=== PATIENT | male | born 1950 | race Caucasian/White ===

== ENCOUNTER 2017-09-29 08:46 | Emergency (ER) | payer MEDICARE, OTHER ==
--- NOTE | 2017-09-29 09:01 | ER Document Report ---
ED Respiratory Problem - General Chief Complaint: Breathing Difficulty Stated Complaint: SOB Time Seen by Provider: 09/29/17 08:58 Notes: The patient is a 67-year-old male, past medical history CAD (w/ stents), hypothyroidism, GERD, presents with increasing shortness of breath that is worse when he lays flat over the past few hours. 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 Patient is visiting his son and he is from [facility]. Patient said he had a heart attack last week and a stent placed, but there is difficulty placing other stents. Pt felt a mild pressure this morning and rattling in his chest. Patient denies current chest pain, cough, fevers, nausea , vomiting, rash, calf pain, hemoptysis or back pain. TRAVEL OUTSIDE OF THE [place] IN LAST 30 DAYS: No - Related Data Allergies/Adverse Reactions: Iodinated Contrast- Oral and IV Dye Allergy (Severe, Verified 09/29/17 10:14) amoxicillin Allergy (Verified 09/29/17 08:49) hydrocodone Allergy (Verified 09/29/17 08:49) perflutren [From DefinPegg'd] Allergy (Verified 09/29/17 08:49) Past Medical History - General Information source: Patient - Social History Smoking Status: Unknown if Ever Smoked Family History: Reviewed & Not Pertinent Review of Systems - Review of Systems Notes: REVIEW OF SYSTEMS: CONSTITUTIONAL: -fevers, -chills EENT: -eye pain, -difficulty swallowing, -nasal congestion CARDIOVASCULAR: +chest pain, -syncope. RESPIRATORY: -cough, +SOB GASTROINTESTINAL: -abdominal pain, -nausea, -vomiting, -diarrhea GENITOURINARY: -dysuria, -hematuria MUSCULOSKELETAL: -back pain, -neck pain SKIN: -rash or skin lesions. HEMATOLOGIC: -easy bruising or bleeding. LYMPHATIC: -swollen, enlarged glands. NEUROLOGICAL: -altered mental status or loss of consciousness, -headache, - neurologic symptoms PSYCHIATRIC: -anxiety, -depression. ALL OTHER SYSTEMS REVIEWED AND NEGATIVE. Physical Exam - Vital signs Vitals: Temp Pulse Resp BP Pulse Ox 97.6 F 59 L 20 150/85 H 92 09/29/17 08:54 09/29/17 08:54 09/29/17 08:54 09/29/17 08:54 09/29/17 08:54 - Notes Notes: PHYSICAL EXAMINATION: GENERAL: Well-appearing, well-nourished and in no acute distress. HEAD: Atraumatic, normocephalic. EYES: Pupils equal round and reactive to light, extraocular movements intact, sclera anicteric, conjunctiva are normal. ENT: nares patent, oropharynx clear without exudates. Moist mucous membranes. NECK: Normal range of motion, supple without lymphadenopathy LUNGS: No respiratory distress. Rales in B/L lower lung seth. HEART: Regular rhythm, tachycardia. ABDOMEN: Soft, nontender, normoactive bowel sounds. No guarding, no rebound. No masses appreciated. EXTREMITIES: Normal range of motion, 1+ pitting edema up to knees. No cyanosis. NEUROLOGICAL: Cranial nerves grossly intact. Normal speech, normal gait. Normal sensory and motor exams. PSYCH: Normal mood, normal affect. SKIN: Warm, Dry, normal turgor, no rashes or lesions noted. Course - Re-evaluation Re-evalutation: Patient no respiratory distress and has not had any chest pain. EKG shows [address] elevation in V2 without any reciprocal changes or any other ST elevations. First troponin is 0.159, second troponin is 0.162 and repeat EKG does not show any dynamic changes. Patient has never been to this hospital and no old values. Patient is having sinus tachycardia, shortness of breath and elevated d -dimer. He has anaphylaxis to IV dye, so VQ scan ordered. VQ scan does not show any evidence of a PE. Pt with possible new onset CHF with elevated troponin. Patient with known stenosis of his coronary artery that were difficult to stent last week of he is visiting his son in [place]. No overlay operator at [facility] and patient is requesting transfer to his home hospital at [facility]. 09/29/17 13:[address] Kincaid at [facility] and he has accepted the patient. Patient remains chest pain-free and is not having any shortness of breath unless he exerts himself. He remains mildly tachycardic, but otherwise normal blood pressure and oxygenation. Awaiting bed assignment. 09/29/17 15:31 Difficulty obtaining transportation to hospital 6 hours away. Pt requesting transfer to [facility]. Placed call to transfer center and awaiting callback. 09/29/17 15:[address] Derrick Martinez ([facility]) and he has accepted the patient. Spoke to patient and son and they still wish to go to his home hospital at [facility]. Since unable to obtain [facility] transportation due to insurance reasons, patient would like to leave AMA and go to [facility]. He has capacity and understands the risks of transporting himself to the ER, including worsening heart attack, and disability. Provided him with a copy of his blood work, note and copy of his scans. Spoke to the ER attending at [facility] and made aware of patient. - Vital Signs Vital signs: Temp Pulse Resp BP Pulse Ox 97.6 F 59 L 27 H 149/89 H 95 09/29/17 08:54 09/29/17 08:54 09/29/17 14:52 09/29/17 14:52 09/29/17 14:52 - Laboratory Result Diagrams: 09/29/17 09:20 09/29/17 09:20 Laboratory results interpreted by me: 09/29/17 09/29/17 09/29/17 09:20 09:20 09:20 RDW 14.8 H D-Dimer Glucose 184 H Creatine Kinase 32 L NT-Pro-B Natriuret Pep 1730 H 09/29/17 09:20 RDW D-Dimer 1.30 H Glucose Creatine Kinase NT-Pro-B Natriuret Pep - Diagnostic Test Radiology reviewed: Image reviewed, Reports reviewed Radiology results interpreted by me: CXR: 1 Mild prominence of the interstitial markings may be on a chronic basis. No acute pulmonary consolidation. 2 Slight blunting of the costophrenic angles, suggesting very small pleural effusions. - EKG Interpretation by Me EKG shows normal: Sinus rhythm Rate: Tachycardia Vado/QRS: LAHB/LAFB When compared to previous EKG there are: Previous EKG unavailable Additional EKG results interpreted by me: EKG #1: Sinus tachycardia. 1mm ST elevation in V2 without reciprocal changes. EKG #2: Unchanged. Critical Care Note - Critical Care Note Total time excluding time spent on procedures (mins): 45 Discharge - Discharge Clinical Impression: Shortness of breath, Possible new onset CHF, Elevated troponin Condition: Stable Disposition: AGAINST MEDICAL ADVICE Additional Instructions: Go immediately to [facility] Emergency Room and bring your records. If you have worsening shortness of breath, chest pain or any other concerns, immediately call 911.
[2017-09-29 09:41] LABS: ABSOLUTE BASOPHILS # (AUTO) 0.1 10^3/uL (0.0-0.2); ABSOLUTE EOSINOPHILS # (AUTO) 0.3 10^3/uL (0.0-0.6); ABSOLUTE LYMPHOCYTES (AUTO) 1.8 10^3/uL (0.5-4.7); ABSOLUTE MONOCYTES (AUTO) 0.5 10^3/uL (0.1-1.4); ABSOLUTE NEUT (AUTO) 4.2 10^3/uL (1.7-8.2); BASOPHILS % (AUTO) 1.3 % (0-2); EOSINOPHILS % (AUTO) 4.2 % (0-6); HEMATOCRIT 44.5 % (37.9-51.0); HEMOGLOBIN 15.4 g/dL (13.5-17.0); LYMPHOCYTES % (AUTO) 26.7 % (13-45); MEAN CORPUSCULAR HEMOGLOBIN 29.4 pg (27.0-33.4); MEAN CORPUSCULAR HGB CONC 34.6 g/dL (32.0-36.0); MEAN CORPUSCULAR VOLUME 85 fl (80-97); MONOCYTES % (AUTO) 7.5 % (3-13); PLATELET COUNT 178 10^3/uL (150-450); RED BLOOD COUNT 5.25 10^6/uL (4.35-5.55); RED CELL DISTRIBUTION WIDTH 14.8 % (11.5-14.0); SEGMENTED NEUTROPHILS % (AUTO) 60.3 % (42-78); TOTAL CELLS COUNTED % (AUTO) 100 %; WHITE BLOOD COUNT 6.9 10^3/uL (4.0-10.5)
[2017-09-29 09:49] LABS: VENOUS BLOOD BASE EXCESS -0.9 mmol/L; VENOUS BLOOD HCO3 23.4 mmol/L (20-32); VENOUS BLOOD PCO2 37.9 mmHg (35-63); VENOUS BLOOD PH 7.41 (7.30-7.42)
--- NOTE | 2017-09-29 09:55 | RADIOLOGY REPORT (SQ) ---
EXAM DESCRIPTION: CHEST SINGLE VIEW COMPLETED DATE/TIME: 09/29/2017 9:21 am REASON FOR STUDY: SOB COMPARISON: None. EXAM PARAMETERS: NUMBER OF VIEWS: One view. TECHNIQUE: Single frontal radiographic view of the chest acquired. RADIATION DOSE: NA LIMITATIONS: None. FINDINGS: LUNGS AND PLEURA: Mild prominence of the interstitial markings likely on a chronic basis. No acute pulmonary consolidation. Slight blunting of the costophrenic angle suggests very small pl eural effusions. No pneumothorax. MEDIASTINUM AND HILAR STRUCTURES: No masses. Contour normal. HEART AND VASCULAR STRUCTURES: Borderline cardiomegaly suggested. Normal vasculature. BONES: No acute findings. HARDWARE: Prior anterior median sternotomy and EKG wires. OTHER: No other significant finding. IMPRESSION: 1 Mild prominence of the interstitial markings may be on a chronic basis. No acute pulm onary consolidation. 2 Slight blunting of the costophrenic angles, suggesting very small pleural effusions. TECHNICAL DOCUMENTATION: JOB ID: [id number] [employer]- All Rights Reserved Reading location - IP/workstation name: [email or web address]
[2017-09-29 10:02] LABS: ALANINE AMINOTRANSFERASE 38 U/L (21-72); ALBUMIN 3.8 g/dL (3.5-5.0); ALKALINE PHOSPHATASE 52 U/L (38-126); ANION GAP 10 (5-19); ASPARTATE AMINO TRANSFERASE 26 U/L (17-59); BILIRUBIN,DIRECT 0.4 mg/dL (0.0-0.4); BILIRUBIN,TOTAL 0.8 mg/dL (0.2-1.3); BLOOD UREA NITROGEN 19 mg/dL (7-20); CALCIUM 9.5 mg/dL (8.4-10.2); CARBON DIOXIDE 24 mmol/L (22-30); CHLORIDE 104 mmol/L (98-107); CREATINE KINASE 32 U/L (55-170); GLUCOSE 184 mg/dL (75-110); POTASSIUM 4.5 mmol/L (3.6-5.0); SODIUM 137.7 mmol/L (137-145); TOTAL PROTEIN 6.8 g/dL (6.3-8.2)
[2017-09-29 10:16] LABS: TROPONIN I 0.159 ng/mL
[2017-09-29] MEDS ORDERED: ASPIRIN 325 MG TABLET PO ONE (10:34)
--- NOTE | 2017-09-29 11:40 | RADIOLOGY REPORT (SQ) ---
EXAM DESCRIPTION: NM LUNG VENT/PERF SCAN COMPLETED DATE/TIME: 09/29/2017 11:23 am REASON FOR STUDY: tachycardia, SOB, elevated d-dimer COMPARISON: Chest x-ray dated 09/29/2017 RADIONUCLIDE AND DOSE: 5.39 millicuries TC-99m MAA Intravenous 31.0 millicuries TC-99m DTPA Inhaled aerosol TECHNIQUE: Eight views of the lungs acquired post ventilation of DTPA aerosol. Eight matching views of the lungs acquired following injection of MAA. LIMITATIONS: None. FINDINGS: VENTILATION: Symmetric and homogeneous distribution of DTPA aerosol during ventilatory pha se. No significant areas of photopenia. PERFUSION: Perfusion images with normal homogenous activity and no wedge-shaped or segmental defects. No ventilation-perfusion mismatches. OTHER: No other significant finding. IMPRESSION: NORMAL VENTILATION-PERFUSION LUNG SCAN. NEGATIVE FOR PULMONARY EMBOLI. TECHNICAL DOCUMENTATION: JOB ID: [id number] [employer]- All Rights Reserved Reading location - IP/workstation name: [email or web address]
--- NOTE | 2017-09-29 13:16 | EKG REPORT ---
SEVERITY:- ABNORMAL ECG - SINUS TACHYCARDIA PROBABLE LEFT ATRIAL ABNORMALITY LEFT AXIS DEVIATION PROBABLE ANTEROSEPTAL INFARCT, OLD LATERAL LEADS ARE ALSO INVOLVED BORDERLINE PROLONGED QT INTERVAL : Confirmed by: Pj Monge MD 29-Sep-2017 13:15:55
[2017-09-29 16:08] VITALS: BP 152/95
--- NOTE | 2017-09-30 19:51 | EKG REPORT ---
SEVERITY:- ABNORMAL ECG - SINUS TACHYCARDIA MULTIPLE ATRIAL PREMATURE COMPLEXES PROBABLE LEFT ATRIAL ABNORMALITY LEFT ANTERIOR FASCICULAR BLOCK PROBABLE ANTEROSEPTAL INFARCT, OLD LATERAL LEADS ARE ALSO INVOLVED BORDERLINE PROLONGED QT INTERVAL : Confirmed by: Pj Monge MD 30-Sep-2017 19:51:16
== END 2017-09-29 16:08 | disposition left against medical advice (07) ==
LOC: ER 08:46
DX: R06.02 Shortness of breath (principal); R74.8 Abnormal levels of other serum enzymes; R79.1 Abnormal coagulation profile; R00.0 Tachycardia, unspecified; I44.4 Left anterior fascicular block; R07.89 Other chest pain; R60.0 Localized edema; I25.10 Atherosclerotic heart disease of native coronary artery without angina pectoris; I25.2 Old myocardial infarction; Z95.5 Presence of coronary angioplasty implant and graft; Z88.0 Allergy status to penicillin; Z88.5 Allergy status to narcotic agent; Z87.892 Personal history of anaphylaxis; Z91.041 Radiographic dye allergy status; Z53.29 Procedure and treatment not carried out because of patient's decision for other reasons
CPT/HCPCS: 93005; 99291; 36415; 82550; 85025; 80053; 84484; 85379; 82803; 83880; 71045; 78582; 93010; A9540; A9567; A9270; Q9969